=== PATIENT | male | born 1950 | race Caucasian/White ===

== ENCOUNTER → 2025-07-04 | Outpatient (REF) | payer OTHER ==
[2025-07-07 18:03] LABS: TOTAL PROTEIN,RANDOM URINE 19.8 MG/DL (0.0-14.0)
[2025-07-10 04:08] LABS: PROTEIN, TOTAL SO 7.2 g/dL (6.1-8.1)
== END ==
LOC: M LAB REF 16:44
PROVIDERS: ATTEND Internal Medicine Nephrology
DX: I12.9 Hypertensive chronic kidney disease with stage 1 through stage 4 chronic kidney disease, or unspecified chronic kidney disease (principal); E11.21 Type 2 diabetes mellitus with diabetic nephropathy